=== PATIENT | male | born 1935 | race Caucasian/White ===

== ENCOUNTER → 2016-11-08 | Outpatient (CLI) | payer OTHER, BC ==
--- NOTE | 2016-11-08 10:48 | EKG ---
[address] [address] Measurements Intervals [place] Rate: 76 P: GA: 0 QRS: 101 QRSD: 142 T: 28 QT: 442 QTc: 472 Interpretive Statements ATRIAL FLUTTERWITH VARIABLE BLOCK RIGHT AXIS DEVIATION INTRAVENTRICULAR CONDUCTION DELAY INFERIOR MYOCARDIAL INFARCTION, PROBABLY OLD No previous ECG available for comparison Electronically Signed On 11-12-16 15:29:29 MDT by Hilton Nye [email or web address]
== END ==
LOC: EKG 10:21
PROVIDERS: ATTEND Orthopaedic Surgery
DX: I10 Essential (primary) hypertension (principal); I48.92 Unspecified atrial flutter; I45.89 Other specified conduction disorders
CPT/HCPCS: 93005; 93010